=== PATIENT | male | born 1955 | race Caucasian/White ===

== ENCOUNTER → 2024-01-17 06:27 | Outpatient (REF) | payer OTHER, SELFPAY | LOC: RAD 06:27 | PROVIDERS: ATTENDING PHYSICIAN Physician Assistant; FAMILY PHYSICIAN Family Medicine | DX: R97.20 Elevated prostate specific antigen [PSA] (principal) | CPT/HCPCS: 76872 ==

== ENCOUNTER 2024-02-26 06:23 | Day surgery (SDC) | payer OTHER, SELFPAY ==
[2024-02-26 11:39] VITALS: BMI 27.1
[2024-02-26 11:40] VITALS: BMI 27.1
[2024-02-26 11:41] VITALS: BP 160/84
[2024-02-26 13:55] VITALS: BP 117/72
[2024-02-26 14:10] VITALS: BP 122/73
[2024-02-26 14:20] VITALS: BP 133/73
== END 2024-02-26 14:45 | disposition home or self-care (01) ==
LOC: GI 06:23
PROVIDERS: ATTENDING PHYSICIAN Internal Medicine Gastroenterology
DX: D12.0 Benign neoplasm of cecum (principal); K57.30 Diverticulosis of large intestine without perforation or abscess without bleeding; Q43.8 Other specified congenital malformations of intestine; K64.0 First degree hemorrhoids
CPT/HCPCS: 45390; 88305

== ENCOUNTER 2024-09-23 06:50 | Day surgery (SDC) | payer OTHER, SELFPAY ==
[2024-09-23 10:14] VITALS: BMI 25.7
[2024-09-23 10:15] VITALS: BMI 25.7
[2024-09-23 10:16] VITALS: BP 156/74
[2024-09-23 12:20] VITALS: BP 120/78
[2024-09-23 12:30] VITALS: BP 137/78
== END 2024-09-23 12:57 | disposition home or self-care (01) ==
LOC: GI 06:50
PROVIDERS: ATTENDING PHYSICIAN Internal Medicine Gastroenterology; FAMILY PHYSICIAN Family Medicine
DX: Z12.11 Encounter for screening for malignant neoplasm of colon (principal); D12.4 Benign neoplasm of descending colon; K57.30 Diverticulosis of large intestine without perforation or abscess without bleeding; K64.0 First degree hemorrhoids; Z98.890 Other specified postprocedural states
CPT/HCPCS: 45385; 45380; 88305

== ENCOUNTER → 2025-03-20 09:56 | Outpatient (REF) | payer OTHER, SELFPAY | LOC: RAD 09:56 | PROVIDERS: ATTENDING PHYSICIAN Physician Assistant | DX: M25.551 Pain in right hip (principal) | CPT/HCPCS: 73502 ==

== ENCOUNTER → 2025-06-11 19:34 | Outpatient (REF) | payer OTHER, SELFPAY | LOC: MRI 3T 19:34 | PROVIDERS: ATTENDING PHYSICIAN Physician Assistant; FAMILY PHYSICIAN Family Medicine | DX: R97.20 Elevated prostate specific antigen [PSA] (principal) | CPT/HCPCS: 72197; A9575 ==

== ENCOUNTER 2025-09-11 05:47 | Day surgery (SDC) | payer OTHER, SELFPAY ==
[2025-09-08 11:43] LABS: Hematocrit 46.1 % (39.0-52.0); Hemoglobin 15.6 g/dL (13.0-18.0); Mean Corp Hgb Conc. 33.8 g/dL (33.0-37.0); Mean Corpuscular Volume 96.4 fL (80.0-94.0); Platelet Count 204 10^3/uL (130-400); Red Cell Dist. Width 11.9 % (11.5-14.5)
[2025-09-08 12:15] LABS: Blood Urea Nitrogen 13 mg/dl (9-20); Calcium 9.0 mg/dl (8.4-10.2); Carbon Dioxide 28 mmol/L (22-30); Chloride 102 mmol/L (98-107); Glucose 86 mg/dl (70-99); Potassium 4.9 mmol/L (3.5-5.1); Sodium 137 mmol/L (135-145); eGFR > 60.00
[2025-09-08 14:04] VITALS: BMI 25.5
[2025-09-11 06:10] VITALS: BMI 25.5
[2025-09-11 06:11] VITALS: BP 133/71
[2025-09-11] MEDS: NORMOSOL-R/PLASMALYTE-A 1000 IV (06:20)
[2025-09-11 07:52] VITALS: BP 113/56
[2025-09-11 08:01] VITALS: BP 117/71
[2025-09-11 08:15] VITALS: BP 123/68
[2025-09-11 08:24] VITALS: BP 134/78
[2025-09-11] MEDS: FLOMAX 0.4 MG PO (08:38)
== END 2025-09-11 08:45 | disposition home or self-care (01) ==
LOC: SDS 05:47
PROVIDERS: ATTENDING PHYSICIAN Specialist; FAMILY PHYSICIAN Family Medicine
DX: N40.0 Benign prostatic hyperplasia without lower urinary tract symptoms (principal); R97.20 Elevated prostate specific antigen [PSA]
CPT/HCPCS: 55700; 76998; 80048; 85027; 88305; 88344; 93005; J1580